=== PATIENT | female | born 1995 | race Caucasian/White ===

== ENCOUNTER 2017-08-26 22:23 | Emergency (ER) | payer MEDICAID, OTHER ==
[~2017-08-26] VITALS: Ht 152.4 cm; Wt 86.0 kg
[2017-08-26] MEDS ORDERED: ACETAMINOPHEN 500MG TABLET PO ONE (23:00)
[2017-08-27] MEDS ORDERED: IBUPROFEN 800MG TABLET PO ONE (00:15)
[2017-08-27 01:00] VITALS: BP 116/60
== END 2017-08-27 01:16 | disposition home or self-care (01) ==
LOC: ER 22:23
DX: S83.91XA Sprain of unspecified site of right knee, initial encounter (principal); X50.1XXA Overexertion from prolonged static or awkward postures, initial encounter; Y93.89 Activity, other specified; Y92.830 Public park as the place of occurrence of the external cause
CPT/HCPCS: 73562; 81025; 99284; L1830

== ENCOUNTER 2018-03-28 08:21 | Emergency (ER) | payer OTHER ==
[~2018-03-28] VITALS: Ht 152.4 cm; Wt 82.0 kg
[2018-03-28] MEDS ORDERED: ACETAMINOPHEN 325MG TABLET PO PRN (10:15)
[2018-03-28 10:31] LABS: BASOPHILS % 0.4 % (0.0-2.0); EOSINOPHILS % 0.4 % (0.0-5.0); HEMATOCRIT. 37.5 % (36.0-48.0); HEMOGLOBIN. 13.1 g/dL (12.0-16.0); LYMPHOCYTES % 23.4 % (20.0-50.0); MEAN CORPUSCULAR HEMOGLOBIN 30.9 pg (28.0-32.0); MEAN CORPUSCULAR VOLUME 88.3 fL (81.0-99.0); MEAN PLATELET VOLUME 9.9 fl (7.4-10.4); NEUTROPHILS % 70.8 % (40.0-76.0); PLATELET 202 x1000/uL (130-400); RED BLOOD CELL COUNT 4.25 mill/uL (4.2-5.4); RED CELL DISTRIBUTION WIDTH 14.3 % (11.6-14.6)
[2018-03-28 10:40] LABS: CHLORIDE 106 mEq/L (98-107)
[2018-03-28 10:58] LABS: B-HCG QUANTITATIVE 11973 mIU/mL (<3)
[2018-03-28 11:26] VITALS: BP 112/72
[2018-03-28 16:13] LABS: CLARITY URINE CLOUDY (CLEAR); COLOR URINE YELLOW (YELLOW); KETONES URINE NEGATIVE (NEGATIVE); LEUKOCYTE ESTERASE URINE 1+ (NEGATIVE); NITRITE URINE NEGATIVE (NEGATIVE); OCCULT BLOOD URINE NEGATIVE (NEGATIVE); PROTEIN URINE NEGATIVE (NEGATIVE)
[2018-03-28 16:27] LABS: *AMPHETAMINES SCREEN URINE NEGATIVE (NEGATIVE); *BARBITURATES SCREEN URINE NEGATIVE (NEGATIVE); *BENZODIAZEPINES SCREEN URINE NEGATIVE (NEGATIVE)
[2018-03-28 16:28] LABS: *COCAINE SCREEN URINE NEGATIVE (NEGATIVE); METHADONE URINE SCREEN NEGATIVE (NEGATIVE); OPIATES URINE SCREEN NEGATIVE (NEGATIVE); PHENCYCLIDINE URINE SCREEN NEGATIVE (NEGATIVE)
[2018-03-28 16:35] LABS: CANNABINOID URINE SCREEN PRESUMTIVE POSITIVE (NEGATIVE)
== END 2018-03-28 13:02 | disposition left against medical advice (07) ==
LOC: ER 08:21
DX: O00.01 Abdominal pregnancy with intrauterine pregnancy (principal); M54.40 Lumbago with sciatica, unspecified side; Z3A.17 17 weeks gestation of pregnancy
CPT/HCPCS: 36415; 76805; 80048; 80305; 81025; 84702; 86850; 86900; 93005; 93970; 99285

== ENCOUNTER 2018-04-24 08:43 | Observation (INO) | payer OTHER ==
[~2018-04-24] VITALS: Ht 152.4 cm; Wt 83.9 kg
[2018-04-24 09:52] LABS: CLARITY URINE CLOUDY (CLEAR); COLOR URINE YELLOW (YELLOW); KETONES URINE NEGATIVE (NEGATIVE); LEUKOCYTE ESTERASE URINE 2+ (NEGATIVE); NITRITE URINE NEGATIVE (NEGATIVE); OCCULT BLOOD URINE NEGATIVE (NEGATIVE); PH URINE 6.5 (4.5-8.0); PROTEIN URINE NEGATIVE (NEGATIVE); SPECIFIC GRAVITY URINE 1.026 (1.005-1.030); UROBILINOGEN URINE 0.2 E.U./dL (0.2-1.0)
[2018-04-24] MEDS ORDERED: LACTATED RINGERS 1,000 ML IV SCH (10:15)
[2018-04-24] MEDS ORDERED: CEFAZOLIN 2,000 MG in DEXT 5% WATER 100 ML IV SCH (10:30)
== END 2018-04-24 11:25 | disposition home or self-care (01) ==
LOC: L&D 08:43
PROVIDERS: ADMIT Obstetrics & Gynecology; ATTEND Obstetrics & Gynecology
DX: O26.892 Other specified pregnancy related conditions, second trimester (principal); R10.10 Upper abdominal pain, unspecified; M54.9 Dorsalgia, unspecified; R35.0 Frequency of micturition; Z3A.20 20 weeks gestation of pregnancy
CPT/HCPCS: 81003; 96365; 99281; G0378; J0690; 96360; J7060

== ENCOUNTER 2018-08-28 13:30 | Observation (INO) | payer MEDICAID, OTHER | END 2018-08-28 16:40 | disposition home or self-care (01) | LOC: 8 EST LDRP 13:30 | PROVIDERS: ADMIT Obstetrics & Gynecology; ATTEND Obstetrics & Gynecology | DX: O62.9 Abnormality of forces of labor, unspecified (principal); O26.893 Other specified pregnancy related conditions, third trimester; R10.9 Unspecified abdominal pain; M54.9 Dorsalgia, unspecified; Z3A.38 38 weeks gestation of pregnancy | CPT/HCPCS: 76805; G0378 ==

== ENCOUNTER 2018-08-28 16:53 | Emergency (ER) | payer MEDICAID ==
[~2018-08-28] VITALS: Ht 152.4 cm; Wt 90.0 kg
[2018-08-28] MEDS: BUTORPHANOL TARTRATE 2 MG/ML VIAL IM PRN ×2 (18:38→18:46)
[2018-08-28 19:07] VITALS: BP 111/71
== END 2018-08-28 19:17 | disposition home or self-care (01) ==
LOC: ER 16:53
DX: O26.893 Other specified pregnancy related conditions, third trimester (principal); M53.3 Sacrococcygeal disorders, not elsewhere classified; Z3A.39 39 weeks gestation of pregnancy; W01.0XXA Fall on same level from slipping, tripping and stumbling without subsequent striking against object, initial encounter; Y93.89 Activity, other specified; Y92.512 Supermarket, store or market as the place of occurrence of the external cause
CPT/HCPCS: 96372; 99283

== ENCOUNTER 2018-09-08 11:48 | Inpatient (IN) | payer MEDICAID ==
[~2018-09-08] VITALS: Ht 152.4 cm; Wt 95.3 kg
[2018-09-08] MEDS ORDERED: MISOPROSTOL 100MCG TABLET VG PRN (13:45)
[2018-09-08] MEDS ORDERED: METHYLERGONOVINE MALEATE 0.2 MG/ML IM PRN (13:45)
[2018-09-08] MEDS ORDERED: BUTORPHANOL TARTRATE 2 MG/ML VIAL IV PRN (13:45)
[2018-09-08] MEDS ORDERED: NALOXONE HCL 0.4 MG/ML 1ML VIAL IM PRN (13:45)
[2018-09-08] MEDS ORDERED: DEXT 5%/LR + PITOCIN 20UNITS/L 1,000 ML IV SCH ×2 (13:45→20:00)
[2018-09-08] MEDS ORDERED: LIDOCAINE HCL 1% 20ML VIAL (Pyxis) INJ INFIL PRN (13:45)
[2018-09-08] MEDS ORDERED: TERBUTALINE SULFATE 1MG/ML VIAL SUBCUT NR (14:30)
[2018-09-08 14:38] LABS: BASOPHILS % 0.3 % (0.0-2.0); EOSINOPHILS % 0.1 % (0.0-5.0); HEMATOCRIT. 32.7 % (36.0-48.0); HEMOGLOBIN. 11.1 g/dL (12.0-16.0); LYMPHOCYTES % 21.1 % (20.0-50.0); MEAN CORPUSCULAR VOLUME 82.8 fL (81.0-99.0); MEAN PLATELET VOLUME 9.5 fl (7.4-10.4); MONOCYTES % 6.3 % (2.0-8.0); NEUTROPHILS % 72.2 % (40.0-76.0); PLATELET 180 x1000/uL (130-400); RED BLOOD CELL COUNT 3.95 mill/uL (4.2-5.4); RED CELL DISTRIBUTION WIDTH 14.4 % (11.6-14.6)
[2018-09-08 14:40] LABS: INR 0.9; PARTIAL THROMBOPLASTIN TIME 29.2 sec (23.4-31.0); PROTHROMBIN TIME 9.7 sec (9.6-11.0)
[2018-09-08 14:44] LABS: CLARITY URINE CLEAR (CLEAR); COLOR URINE YELLOW (YELLOW); KETONES URINE NEGATIVE (NEGATIVE); LEUKOCYTE ESTERASE URINE NEGATIVE (NEGATIVE); NITRITE URINE NEGATIVE (NEGATIVE); OCCULT BLOOD URINE 1+ (NEGATIVE); PROTEIN URINE NEGATIVE (NEGATIVE); SPECIFIC GRAVITY URINE 1.019 (1.005-1.030); UROBILINOGEN URINE 0.2 E.U./dL (0.2-1.0)
[2018-09-08] MEDS ORDERED: PENICILLIN G POTASSIUM 5 MMU in DEXT 5% WATER 100 ML IV SCH (15:00)
[2018-09-08 15:05] LABS: METHADONE URINE SCREEN NEGATIVE (NEGATIVE); OPIATES URINE SCREEN NEGATIVE (NEGATIVE)
[2018-09-08 15:06] LABS: *AMPHETAMINES SCREEN URINE NEGATIVE (NEGATIVE); *BARBITURATES SCREEN URINE NEGATIVE (NEGATIVE); *BENZODIAZEPINES SCREEN URINE NEGATIVE (NEGATIVE); *COCAINE SCREEN URINE NEGATIVE (NEGATIVE); CANNABINOID URINE SCREEN NEGATIVE (NEGATIVE); PHENCYCLIDINE URINE SCREEN NEGATIVE (NEGATIVE)
[2018-09-08 15:14] LABS: HEPATITIS B SURFACE ANTIGEN NEGATIVE
[2018-09-08] MEDS: LACTATED RINGERS 1,000 ML IV SCH ×2 (15:24→16:57)
[2018-09-08] MEDS ORDERED: LIDOCAINE HCL/PF 1% 10 MG/ML 5ML VIAL ONE (17:07)
[2018-09-08] MEDS ORDERED: FENTANYL CITRATE/PF 50MCG/ML 2ML VIAL ONE (17:20)
[2018-09-08] MEDS ORDERED: BUPIVACAINE HCL/PF 0.25% (2.5MG/ML) 10ML ONE (17:20)
[2018-09-08] MEDS ORDERED: CITRIC ACID/SODIUM CITRATE SOLN 30ML UDC PO NR (17:30)
[2018-09-08] MEDS ORDERED: ONDANSETRON HCL 4MG/2ML INJ IV PRN ×2 (17:30→19:30)
[2018-09-08] MEDS ORDERED: DIPHENHYDRAMINE 50MG/ML VIAL IV PRN (17:30)
[2018-09-08] MEDS ORDERED: METOCLOPRAMIDE HCL 10MG/2ML VIAL IV PRN (17:30)
[2018-09-08] MEDS ORDERED: ROPIVACAINE HCL/PF EPIDURAL 200 ML EPI SCH (17:30)
[2018-09-08] MEDS ORDERED: PENICILLIN G POTASSIUM 2.5 MMU in DEXTROSE 5% WATER 50 ML IV SCH (19:00)
[2018-09-08] MEDS ORDERED: MORPHINE SULFATE/PF 1MG/ML 10ML AMP ONE (19:07)
[2018-09-08] MEDS ORDERED: RHO(D) IMMUNE GLOBULIN 300 MCG/SYR IM PRN (19:30)
[2018-09-08] MEDS ORDERED: LANOLIN OINT 0.25 GM TUBE TOP PRN (19:30)
[2018-09-08] MEDS ORDERED: HEMORRHOIDAL SUPP PR PRN (19:30)
[2018-09-08 21:50] VITALS: BP 106/62
[2018-09-08 22:50] VITALS: BP 107/60
[2018-09-08 23:30] VITALS: BP 110/60
[2018-09-09 01:30] VITALS: BP 107/67
[2018-09-09] MEDS: HYDROMORPHONE HCL/PF 2MG/ML CPJ IV PRN ×3 (01:46→10:12)
[2018-09-09 04:00] VITALS: BP 105/55
[2018-09-09 06:46] LABS: BASOPHILS % 0.1 % (0.0-2.0); EOSINOPHILS % 0.1 % (0.0-5.0); HEMATOCRIT. 24.6 % (36.0-48.0); HEMOGLOBIN. 8.4 g/dL (12.0-16.0); LYMPHOCYTES % 14.1 % (20.0-50.0); MEAN CORPUSCULAR HEMOGLOBIN 28.3 pg (28.0-32.0); MEAN CORPUSCULAR VOLUME 83.1 fL (81.0-99.0); MEAN PLATELET VOLUME 9.6 fl (7.4-10.4); MONOCYTES % 7.9 % (2.0-8.0); NEUTROPHILS % 77.8 % (40.0-76.0); PLATELET 146 x1000/uL (130-400); RED BLOOD CELL COUNT 2.96 mill/uL (4.2-5.4); RED CELL DISTRIBUTION WIDTH 14.3 % (11.6-14.6)
[2018-09-09] MEDS: MAGNESIUM/ALUMINUM HYDROXIDE/SIMETHICONE 30ML UDC PO SCH ×5 (07:30→20:26)
[2018-09-09 08:00] VITALS: BP 110/65
[2018-09-09] MEDS: PRENATAL VIT/FE FUMARATE/FA TABLET PO SCH (10:12)
[2018-09-09 12:00] VITALS: BP 105/61
[2018-09-09] MEDS: ACETAMINOPHEN WITH CODEINE 300/30MG TABLET PO PRN (13:17)
[2018-09-09 14:45] VITALS: BP 108/56
[2018-09-09] MEDS: IBUPROFEN 400MG TABLET PO PRN (20:26)
[2018-09-09 22:00] VITALS: BP 113/53
[2018-09-10] VITALS (7 sets, daily range): BP systolic 101–114; BP diastolic 62–68
[2018-09-10] MEDS: PRENATAL VIT/FE FUMARATE/FA TABLET PO SCH (08:30)
[2018-09-10] MEDS: ACETAMINOPHEN WITH CODEINE 300/30MG TABLET PO PRN ×2 (08:30→13:39)
[2018-09-10] MEDS: MAGNESIUM/ALUMINUM HYDROXIDE/SIMETHICONE 30ML UDC PO SCH ×4 (08:30→20:56)
[2018-09-10] MEDS: HYDROCODONE/ACETAMINOPHEN 5/325MG TABLET PO PRN ×2 (15:46→22:50)
[2018-09-11 03:45] VITALS: BP 115/70
[2018-09-11 04:00] VITALS: BP 102/63
[2018-09-11] MEDS: IBUPROFEN 400MG TABLET PO PRN (08:19)
[2018-09-11] MEDS: ACETAMINOPHEN WITH CODEINE 300/30MG TABLET PO PRN ×2 (08:19→12:09)
[2018-09-11] MEDS: PRENATAL VIT/FE FUMARATE/FA TABLET PO SCH (08:21)
[2018-09-11] MEDS: MAGNESIUM/ALUMINUM HYDROXIDE/SIMETHICONE 30ML UDC PO SCH (08:21)
[2018-09-11 09:00] VITALS: BP 112/63
== END 2018-09-11 14:45 | disposition home or self-care (01) | DRG 540 ==
LOC: OBSVTOIN 11:48 → 8 EST LDRP 11:48 → 8EST 21:28
PROVIDERS: ADMIT Obstetrics & Gynecology; ATTEND Obstetrics & Gynecology
PROC: 10D00Z1 Extraction of Products of Conception, Low, Open Approach (ICD-10-PCS; principal; 2018-09-10)
DX: O36.63X0 Maternal care for excessive fetal growth, third trimester, not applicable or unspecified (principal); D62 Acute posthemorrhagic anemia; O69.81X0 Labor and delivery complicated by cord around neck, without compression, not applicable or unspecified; O90.81 Anemia of the puerperium; Z3A.40 40 weeks gestation of pregnancy; Z37.0 Single live birth
CPT/HCPCS: 36415; 76805; 76818; 80305; 86592; 86703; 86762; 86850; 86900; 86920; 87340; 88307; 99281; J1170; J2274; J2540; J2590; J2795; J3010; J3105; J3490; J7060; A4315

== ENCOUNTER 2022-08-12 13:37 | Inpatient (IN) | payer MEDICAID ==
[~2022-08-12] VITALS: Ht 149.9 cm; Wt 88.5 kg
[2022-08-12] MEDS ORDERED: LACTATED RINGERS 1,000 ML IV SCH (16:30)
[2022-08-12] MEDS ORDERED: METHYLERGONOVINE MALEATE 0.2 MG/ML IM PRN (16:30)
[2022-08-12] MEDS ORDERED: MISOPROSTOL 100MCG TABLET RC PRN (16:30)
[2022-08-12] MEDS ORDERED: OXYTOCIN 10 UNITS/ML 1ML ONE (16:44)
[2022-08-12] MEDS ORDERED: DIPHENHYDRAMINE 50MG/ML VIAL ONE (16:44)
[2022-08-12] MEDS ORDERED: PHENYLEPHRINE HCL 10 MG/ML 1ML (IV VIAL) IV ONE (16:44)
[2022-08-12] MEDS ORDERED: MORPHINE SULFATE/PF 1MG/ML 10ML AMP ONE (16:44)
[2022-08-12] MEDS ORDERED: EPHEDRINE SULFATE 50MG/ML VIAL ONE (16:44)
[2022-08-12] MEDS ORDERED: CEFAZOLIN SODIUM 1000MG/VIAL ONE (16:44)
[2022-08-12] MEDS ORDERED: FENTANYL CITRATE/PF 50MCG/ML 2ML VIAL ONE (16:44)
[2022-08-12] MEDS ORDERED: ONDANSETRON HCL 4MG/2ML INJ ONE (16:44)
[2022-08-12] MEDS ORDERED: SODIUM CHLORIDE 0.9% 10ML VIAL ONE (16:46)
[2022-08-12] MEDS ORDERED: CITRIC ACID/SODIUM CITRATE SOLN 30ML UDC PO NR (17:00)
[2022-08-12 17:26] LABS: INR 0.9; PARTIAL THROMBOPLASTIN TIME 27.1 sec (23.4-31.0); PROTHROMBIN TIME 9.8 sec (9.6-11.0)
[2022-08-12 17:28] LABS: BASOPHILS % 0.3 % (0.0-2.0); CHLORIDE 108 mEq/L (98-107); EOSINOPHILS % 1.3 % (0.0-5.0); HEMATOCRIT. 33.2 % (36.0-48.0); HEMOGLOBIN. 11.2 g/dL (12.0-16.0); LYMPHOCYTES % 22.8 % (20.0-50.0); MEAN CORPUSCULAR HEMOGLOBIN 28.5 pg (28.0-32.0); MEAN CORPUSCULAR VOLUME 84.7 fL (81.0-99.0); MEAN PLATELET VOLUME 9.7 fl (7.4-10.4); MONOCYTES % 7.1 % (2.0-8.0); NEUTROPHILS % 68.5 % (40.0-76.0); PLATELET 253 x1000/uL (130-400); RED BLOOD CELL COUNT 3.92 mill/uL (4.2-5.4); RED CELL DISTRIBUTION WIDTH 13.3 % (11.6-14.6)
[2022-08-12 17:43] LABS: CLARITY URINE CLOUDY (CLEAR); COLOR URINE YELLOW (YELLOW); KETONES URINE NEGATIVE (NEGATIVE); LEUKOCYTE ESTERASE URINE 3+ (NEGATIVE); NITRITE URINE NEGATIVE (NEGATIVE); OCCULT BLOOD URINE NEGATIVE (NEGATIVE); PROTEIN URINE TRACE (NEGATIVE); SPECIFIC GRAVITY URINE 1.019 (1.005-1.030); UROBILINOGEN URINE 0.2 E.U./dL (0.2-1.0)
[2022-08-12 17:58] LABS: *AMPHETAMINES SCREEN URINE NEGATIVE (NEGATIVE); *BARBITURATES SCREEN URINE NEGATIVE (NEGATIVE); *BENZODIAZEPINES SCREEN URINE NEGATIVE (NEGATIVE); *COCAINE SCREEN URINE NEGATIVE (NEGATIVE); CANNABINOID URINE SCREEN NEGATIVE (NEGATIVE); HEPATITIS B SURFACE ANTIGEN NEGATIVE; METHADONE URINE SCREEN NEGATIVE (NEGATIVE); OPIATES URINE SCREEN NEGATIVE (NEGATIVE); PHENCYCLIDINE URINE SCREEN NEGATIVE (NEGATIVE)
[2022-08-12] MEDS ORDERED: KETOROLAC 60MG/2ML VIAL IM ONE (18:40)
[2022-08-12] MEDS ORDERED: NALOXONE HCL 0.4 MG/ML 1ML VIAL IV PRN (18:45)
[2022-08-12] MEDS ORDERED: BUTORPHANOL TARTRATE 2 MG/ML VIAL IV PRN (18:45)
[2022-08-12] MEDS ORDERED: DIPHENHYDRAMINE 50MG/ML VIAL IV PRN (18:45)
[2022-08-12] MEDS: OXYTOCIN 30 UNITS/500ML NS PMX 500 ML IV SCH ×2 (19:40→21:43)
[2022-08-12] MEDS ORDERED: IBUPROFEN 400MG TABLET PO PRN (20:30)
[2022-08-12] MEDS ORDERED: HEMORRHOIDAL SUPP PR PRN (20:30)
[2022-08-12] MEDS ORDERED: RHO(D) IMMUNE GLOBULIN 300 MCG/SYR IM PRN (20:30)
[2022-08-12] MEDS ORDERED: DIPHENHYDRAMINE 25MG CAPSULE PO PRN (20:30)
[2022-08-12] MEDS ORDERED: ONDANSETRON HCL 4MG/2ML INJ IV PRN (20:30)
[2022-08-12] MEDS ORDERED: LANOLIN OINT 7GM TUBE TOP PRN (20:30)
[2022-08-12] MEDS ORDERED: BISACODYL 10MG SUPP PR PRN (20:30)
[2022-08-12] MEDS ORDERED: HYDROCODONE/ACETAMINOPHEN 5/325MG TABLET PO PRN (20:30)
[2022-08-12] MEDS ORDERED: OXYTOCIN 30 UNITS/500ML NS PMX 500 ML IV SCH (20:30)
[2022-08-12 21:50] VITALS: BP 112/59
[2022-08-12] MEDS ORDERED: CEFAZOLIN 2,000 MG in DEXT 5% WATER 100 ML IV SCH (22:00)
[2022-08-13] MEDS: OXYTOCIN 30 UNITS/500ML NS PMX 500 ML IV SCH ×2 (01:44→06:56)
[2022-08-13 04:00] VITALS: BP 100/50
[2022-08-13 06:50] LABS: BASOPHILS % 0.2 % (0.0-2.0); EOSINOPHILS % 0.7 % (0.0-5.0); HEMATOCRIT. 23.1 % (36.0-48.0); HEMOGLOBIN. 7.9 g/dL (12.0-16.0); LYMPHOCYTES % 17.1 % (20.0-50.0); MEAN PLATELET VOLUME 9.4 fl (7.4-10.4); MONOCYTES % 6.7 % (2.0-8.0); NEUTROPHILS % 75.3 % (40.0-76.0); PLATELET 162 x1000/uL (130-400); RED BLOOD CELL COUNT 2.72 mill/uL (4.2-5.4); RED CELL DISTRIBUTION WIDTH 13.4 % (11.6-14.6)
[2022-08-13 07:45] VITALS: BP 96/54
[2022-08-13] MEDS: PRENATAL VIT/FE FUMARATE/FA TABLET PO SCH (08:50)
[2022-08-13] MEDS: FERROUS SULFATE 325MG TABLET PO SCH ×2 (08:51→18:01)
[2022-08-13] MEDS: MAGNESIUM/ALUMINUM HYDROXIDE/SIMETHICONE 30ML UDC PO SCH ×5 (09:03→21:04)
[2022-08-13 12:57] VITALS: BP 94/47
[2022-08-13] MEDS: SIMETHICONE 80MG TABLET CHEW PO SCH ×4 (13:19→21:04)
[2022-08-13 16:42] VITALS: BP 98/49
[2022-08-13 20:00] VITALS: BP 99/57
[2022-08-13] MEDS ORDERED: TETANUS, DIPHTHERIA, PERTUSSIS VAC/PF 0.5ML (>10YR OLD) IM ONE (21:00)
[2022-08-13] MEDS: DOCUSATE SODIUM 100MG CAPSULE PO SCH ×2 (21:03→21:04)
[2022-08-13] MEDS: IBUPROFEN 800MG TABLET PO PRN (23:44)
[2022-08-14 04:00] VITALS: BP 100/60
[2022-08-14 08:00] VITALS: BP 103/62
[2022-08-14] MEDS: PRENATAL VIT/FE FUMARATE/FA TABLET PO SCH (08:44)
[2022-08-14] MEDS: SIMETHICONE 80MG TABLET CHEW PO SCH ×2 (08:44→20:42)
[2022-08-14] MEDS: MAGNESIUM/ALUMINUM HYDROXIDE/SIMETHICONE 30ML UDC PO SCH ×2 (08:44→20:42)
[2022-08-14] MEDS: FERROUS SULFATE 325MG TABLET PO SCH (08:44)
[2022-08-14 16:00] VITALS: BP 109/63
[2022-08-14] MEDS: IBUPROFEN 800MG TABLET PO PRN (16:59)
[2022-08-14 20:00] VITALS: BP 112/76
[2022-08-14] MEDS: DOCUSATE SODIUM 100MG CAPSULE PO SCH (20:42)
[2022-08-15 04:00] VITALS: BP_SYST 110; BP_SYST 124; BP_DIAS 80
[2022-08-15 07:30] VITALS: BP 111/70
[2022-08-15] MEDS: MAGNESIUM/ALUMINUM HYDROXIDE/SIMETHICONE 30ML UDC PO SCH (07:30)
[2022-08-15] MEDS: SIMETHICONE 80MG TABLET CHEW PO SCH (07:51)
[2022-08-15] MEDS: PRENATAL VIT/FE FUMARATE/FA TABLET PO SCH (08:10)
[2022-08-15] MEDS: FERROUS SULFATE 325MG TABLET PO SCH (08:10)
[2022-08-15] MEDS ORDERED: IBUP-2030 PO (09:25)
== END 2022-08-15 11:30 | disposition home or self-care (01) | DRG 540 ==
LOC: OBSVTOIN 13:37 → 8 EST LDRP 13:37 → 8EST 21:50
PROVIDERS: ADMIT Obstetrics & Gynecology; ATTEND Obstetrics & Gynecology
PROC: 10D00Z1 Extraction of Products of Conception, Low, Open Approach (ICD-10-PCS; principal; 2022-08-12)
DX: O34.211 Maternal care for low transverse scar from previous cesarean delivery (principal); D50.0 Iron deficiency anemia secondary to blood loss (chronic); O99.02 Anemia complicating childbirth; Z20.822 Contact with and (suspected) exposure to COVID-19; Z37.0 Single live birth; Z3A.38 38 weeks gestation of pregnancy
CPT/HCPCS: 36415; 76805; 76818; 80053; 80305; 81003; 85025; 86592; 86703; 86762; 86850; 86900; 87340; 87426; 88307; 90715; 99281; J0690; J1200; J1885; J2210; J2274; J2370; J2405; J3010; J3490; J7060; J2590